=== PATIENT | male | born 1950 | race Caucasian/White ===

== ENCOUNTER 2020-05-30 20:08 | Emergency (ER) | payer OTHER ==
[2020-05-30 20:17] VITALS: BP 101/70; Wt 85.0 kg
[2020-05-30] MEDS ORDERED: DOXYCYCLINE HY100 M2 PO (22:03)
[2020-05-30 22:07] LABS: BASOPHILS 0.1 % (0-2); EOSINOPHILS 0 % (0-7); HEMATOCRIT 38.7 % (42.0-54.0); HEMOGLOBIN 13.2 g/dL (13.5-17.5); IMMATURE GRANULOCYTES 0.4 % (0-5); LYMPHOCYTES 3.6 % (15-50); MCH 32.4 pg (26.0-34.0); MCHC 34.1 g/dL (31.0-37.0); MCV 94.9 fL (80.0-100.0); MEAN PLATELET VOLUME 11.7 fL (7.4-10.4); MONOCYTES 12.2 % (2-11); NEUTROPHIL ABS# 13.97 10x3/uL (1.78-5.38); NEUTROPHILS 83.7 % (40-80); PLATELET COUNT 180 10x3/uL (130-400); RBC 4.08 10x6/uL (4.20-6.10); RDW 13.4 % (11.5-14.5); WBC 16.7 10x3/uL (4.8-10.8)
[2020-05-30 22:48] LABS: ANION GAP 14.5 mmol/L (8-16); CALCIUM 9.4 mg/dL (8.5-10.1); CARBON DIOXIDE 26.6 mmol/L (21.0-32.0); POTASSIUM - SERUM 4.1 mmol/L (3.5-5.1)
[2020-05-30 22:53] LABS: ALBUMIN 3.5 g/dL (3.4-5.0); BILIRUBIN - TOTAL 0.57 mg/dL (0.2-1.3); C-REACTIVE PROTEIN 20.2 mg/dL (0.0-0.9); PROTEIN - SERUM 7.4 g/dL (6.4-8.2)
== END 2020-05-30 22:30 | disposition home or self-care (01) ==
LOC: D.ER 20:08
PROVIDERS: Family Medicine
DX: N45.1 Epididymitis (principal)